=== PATIENT | female | born 1945 | race African-American/Black ===

== ENCOUNTER 2017-10-18 16:45 | Emergency (ER) | payer MEDICARE, MEDICAID ==
[~2017-10-18] VITALS: Ht 157.5 cm; Wt 73.5 kg
[~2017-10-18 16:45] MED LIST: HYDROCHLOROTHIA25 MG ORAL; NEURONTIN100 MG ORAL; NORCO 5-325 TA1 EACH ORAL; SYNTHROID25 MCG ORAL; VALIUM5 MG ORAL
[2017-10-18] MEDS ORDERED: Norco 5mg/325mg tab ORAL ONE (17:15)
[2017-10-18 17:36] VITALS: BP 129/75
--- NOTE | 2017-10-18 17:43 | Emergency Room Report ---
History of Present Illness General Chief Complaint: Pain Source: Patient, Medical Record Present Illness HPI 72-year-old female presents to the emergency department complaining of 7 out of 10 in severity localized pain to the anterior left knee 2 days. Patient denies trauma or fall. Patient reports history of arthritis in the knee and previously was receiving steroid injections. Patient states she has not had an injection in many months. Patient states that she had right knee replacement several years ago and was told that she needs to have the same procedure performed on the left knee however she has been putting off. Patient denies erythema, increased temperature palpation, open wounds near the affected area. Denies numbness tingling or loss of sensation or gross motor movements of the extremities, incontinence of bowel or bladder. Denies CP, Palpitations, LOC, AMS , dizziness, Changes in Vision, weakness or a sudden severe headache. Allergies: Coded Allergies: CODEINE (Verified Allergy, Unknown, 02/13/13) Patient History Past Medical History: see triage record, other - lumpectomy Past Surgical History: none Pertinent Family History: none Now: No Reviewed Nursing Documentation: PMH: Agreed; PSxH: Agreed Nursing Documentation-PMH Past Medical History: No History, Except For Hx Hypertension: Yes Hx Pacemaker: No Hx COPD: Yes Hx Cancer: Yes - BREAST CA WITH RIGHT LUMPECTOMY Hx Neurological Problems: Yes - Herinated Discs Review of Systems All Other Systems: negative except mentioned in HPI Physical Exam Vital Signs Date Time Temp Pulse Resp B/P (MAP) Pulse Ox O2 Delivery O2 Flow Rate FiO2 10/18/17 16:53 98.0 70 18 129/75 98 Room Air 98.1 Sp02 EP Interpretation: reviewed, normal General Appearance: no apparent distress, alert, GCS 15, non-toxic Head: normocephalic, atraumatic Eyes: bilateral eye normal inspection, bilateral eye PERRL ENT: hearing grossly normal, normal voice Neck: full range of motion Respiratory: chest non-tender, lungs clear, normal breath sounds, speaking full sentences Cardiovascular #1: regular rate, rhythm, no edema, normal capillary refill Cardiovascular #2: 2+ dorsalis pedis (R), 2+ dorsalis pedis (L) Musculoskeletal: back normal, normal range of motion, swelling - LEFt knee, other - Some laxity noted with Valgus stressing, , tender - anterior left knee Neurologic: alert, oriented x3, responsive, motor strength/tone normal, sensory intact, speech normal, grossly normal Psychiatric: judgement/insight normal Skin: normal color, no rash, warm/dry, well hydrated Medical Decision Making ZONIA Attraymondation Dr. Thacker is my supervising Physician whom patient management has been discussed with. Diagnostic Impression: Primary Impression: Knee effusion, left Additional Impression: Knee pain, left Qualified Codes: M25.562 - Pain in left knee ER Course 72-year-old female presents to the emergency department complaining of 7 out of 10 in severity localized pain to the anterior left knee 2 days. Patient denies trauma or fall. Patient reports history of arthritis in the knee and previously was receiving steroid injections. Patient states she has not had an injection in many months. Patient states that she had right knee replacement several years ago and was told that she needs to have the same procedure performed on the left knee however she has been putting off. Patient denies erythema, increased temperature palpation, open wounds near the affected area. Denies numbness tingling or loss of sensation or gross motor movements of the extremities, incontinence of bowel or bladder. Denies CP, Palpitations, LOC, AMS , dizziness, Changes in Vision, weakness or a sudden severe headache. Ddx considered but are not limited to Fracture, dislocation, contusion, Sprain/ Strain/Spasm, septic Joint, Arthritis, gout just to name a few. Vital signs: are WNL, pt. is afebrile H&PE are most consistent with musculoskeletal injury will perform imaging to r/ o fractures/dislocations. ORDERS: - X-ray Left knee - Significant arthritic changes, loss of joint space/ degeneration. Negative for fx, Dislocation, or significant soft tissue injury, per preliminary read in ED, and signed by ZONIA Bolanos, my supervising physician has reviewed, and agrees with my interpretation. ED INTERVENTIONS: -Ackworth PO --Knee Immobilizer splint applied to the Left Knee by electrical controls technician. Pt. remains neurovascularly intact. --Patient is provided with a cane. DISCHARGE: At this time pt. is stable for d/c to home. Will provide printed patient care instructions, and any necessary prescriptions. Care plan and follow up instructions have been discussed with the patient prior to discharge. Other X-Ray Diagnostic Results Other X-Ray Diagnostic Results : X-Ray ordered: Left Knee # of Views/Limited Vs Complete: 3 View Indication: Pain EP Interpretation: Yes ZONIA Xray: Interpretation reviewed, by supervising MD, and agrees with findings. Interpretation: no dislocation, no fractures, other - Significant arthritic changes, loss of joint space/degeneration. Impression: No acute disease Electronically Signed by: Yuli Bolanos PA-C Last Vital Signs Date Time Temp Pulse Resp B/P (MAP) Pulse Ox O2 Delivery O2 Flow Rate FiO2 10/18/17 17:15 98.0 10/18/17 16:53 70 18 129/75 98 Room Air Disposition: HOME, SELF-CARE Condition: Stable Scripts Naproxen* (NAPROXEN*) 500 Mg Tablet 500 MG ORAL TWICE A DAY, #20 TAB Prov: Yuli Bolanos 10/18/17 Referrals: NON PHYSICIAN (PCP) Patient Instructions: Arthritis, [id number], Knee Effusion, Knee Immobilizer , [id number] Additional Instructions: Take medications as directed. Follow up with a Primary Care Provider in 3-5 days, even if your symptoms have resolved. --Please review list of primary care clinics, if you do not already have a primary care provider Return sooner to ED if new symptoms occur, or current symptoms become worse. Do not drink alcohol, drive, or operate heavy machinery while taking Ackworth as this may cause drowsiness. - Please note that this Emergency Department Report was dictated using [employer] plant operator technology software, occasionally this can lead to erroneous entry secondary to interpretation by the dictation equipment. Yuli Bolanos Oct 18, 2017 17:43
--- NOTE | 2017-10-18 18:14 | Diagnostic Imaging Report ---
EXAM: XR Left Knee, 3 views CLINICAL HISTORY: PAIN TECHNIQUE: Three views of the left knee. COMPARISON: No relevant prior studies available. FINDINGS: Bones/joints: Osteoarthrosis, most pronounced in the lateral compartment. Osteopenia. No acute fracture. No dislocation. Soft tissues: Joint fluid distends the suprapatellar pouch. IMPRESSION: Osteoarthrosis. Joint effusion.
[2017-10-18] MEDS ORDERED: NAPROXEN500 M2 ORAL (18:17)
[2017-10-18 18:23] VITALS: BP 122/84
== END 2017-10-18 18:25 | disposition home or self-care (01) ==
LOC: EMR 17:25
DX: M25.462 Effusion, left knee (principal); I10 Essential (primary) hypertension; J44.9 Chronic obstructive pulmonary disease, unspecified; Z85.3 Personal history of malignant neoplasm of breast
CPT/HCPCS: 99283

== ENCOUNTER 2018-10-26 20:20 | Emergency (ER) | payer MEDICARE, MEDICAID ==
[~2018-10-26] VITALS: Ht 157.5 cm; Wt 64.9 kg
[~2018-10-26 20:20] MED LIST changes: +CIPROFLOXACIN500 M2 ORAL; +IBUPROFEN600 MG ORAL; +NAPROXEN500 M2 ORAL; +TRAMADOL HCL50 MG ORAL
[2018-10-26 20:34] VITALS: BP 120/64
--- NOTE | 2018-10-26 20:34 | NUR ---
ED Nurse Note: pt walked in c/o right upper rib area pain, worsen when turning since last wed. ao4. nad. vss. family at bedside.
--- NOTE | 2018-10-26 21:13 | Emergency Room Report ---
History of Present Illness General Chief Complaint: Pain Source: Patient, Medical Record Present Illness HPI Disclaimer: Please note that this report is being documented using DRAGON technology. This can lead to erroneous entry secondary to incorrect interpretation by the dictating instrument. HPI: 73-year-old female with a history of breast cancer status post radiation lumpectomy, thyroidectomy on Synthroid, COPD presents for evaluation of right chest wall pain. Symptoms began approximately 5 days ago. The patient notes pain just below the scapula on the right side that is present with bending and twisting motions or while using the right upper extremity. She denies any fall or injury. No change in cough, denies sputum production, recent fevers or URI symptoms. She denies chest pain, abdominal pain, nausea, vomiting, diarrhea, dysuria or skin rash. The pain is manageable at home and is not been using any medication until today when she took a half a [place] tablet just prior to arrival stating that the pain was getting bad. She has been trying to stretch out the area but no significant improvement. She denies any paresthesias, weakness, swelling of the extremities. PMH: Breast cancer, hypothyroidism, COPD PSH: Thyroidectomy, lumpectomy Allergies: Codeine Social Hx: Former smoker. Denies alcohol or drug use Allergies: Coded Allergies: CODEINE (Verified Allergy, Unknown, 02/13/13) Patient History : 4 Para: 4 Nursing Documentation-PMH Hx Hypertension: Yes Hx Pacemaker: No Hx COPD: Yes Hx Cancer: Yes - BREAST CA WITH RIGHT LUMPECTOMY Hx Neurological Problems: Yes - Herinated Discs Review of Systems All Other Systems: negative except mentioned in HPI Physical Exam Vital Signs Date Time Temp Pulse Resp B/P (MAP) Pulse Ox O2 Delivery O2 Flow Rate FiO2 10/26/18 20:23 99.1 85 18 120/64 (82) 93 Room Air General: Awake and alert, no acute distress HEENT: NC/AT. EOMI. Neck: Supple, trachea midline Chest Wall: There is tenderness palpation around the fifth rib wrapping around through the back without obvious deformity. There is no crepitus. Cardiovascular: RRR. S1 and S2 normal. No murmur appreciated Resp: Normal work of breathing. Breath sounds are equal. No cough, wheezing or crackles appreciated Skin: Intact. No abrasions, laceration or rash over the exposed skin MSK: Normal tone and bulk. Moving all extremities. No obvious deformity. Moving the extremities without difficulty. Strength is 5/5 the shoulders, elbows, wrist bilaterally. No limitation to range of motion of the upper extremities. Neuro: Awake and alert. Mentating appropriately. Sensation is intact of the dermatomes of the upper extremities bilaterally. Back/Spine: No midline tenderness in the cervical, thoracic or lumbosacral spine. No significant tenderness over the paraspinal region in the cervical, thoracic or lumbosacral spine. No tenderness over the trapezius. Medical Decision Making ER Course Is a 73-year-old female presented for evaluation of back and chest wall pain for 5 days. Differential includes but is not limited to musculoskeletal pain, muscle spasm, pneumonia, bronchitis, pneumothorax, occult fracture. Will obtain a two-view chest x-ray to rule out any thoracic pathology, bony or infectious, and treat the patient with intramuscular Toradol. She has a PMD which she follows up closely. If chest x-ray unremarkable, she may be discharged home with outpatient follow-up. Chest X-Ray Diagnostic Results Chest X-Ray Diagnostic Results : # of Views/Limited/Complete: 2 View Indication: Chest Pain EP Interpretation: Yes Interpretation: no consolidation, no effusion, no pneumothorax, no acute cardiopulmonary disease Impression: No acute disease Electronically Signed by: Electronically signed by Dr. Mehul Chavez Reevaluation Time: 22:00 Last Vital Signs Date Time Temp Pulse Resp B/P (MAP) Pulse Ox O2 Delivery O2 Flow Rate FiO2 10/26/18 20:34 99.1 81 18 120/64 93 Room Air Status: improved Reevaluation Impression No evidence of fracture, pneumothorax, pneumonia or other acute pathology seen on two-view chest x-ray. The patient's pain is now completely resolved after receiving intramuscular Toradol. Is likely musculoskeletal though she should follow closely with her PMD. I discussed imaging results, treatment plan with Tylenol Motrin, warm soaks, heating pad and continued exercises with the patient and her daughter who is present at bedside. We also discussed reasons to return to the emergency department. They agree with this treatment plan will be discharged home. Disposition: HOME, SELF-CARE Condition: Improved Referrals: Elieser Solorzano MD (PCP) Mehul Chavez MD Oct 26, 2018 21:13
[2018-10-26] MEDS ORDERED: Ketorolac 30mg Inj IM ONE (21:15)
--- NOTE | 2018-10-26 21:21 | NUR ---
ED Nurse Note: pt down to imaging.
[2018-10-26 22:00] VITALS: BP 120/64
--- NOTE | 2018-10-26 22:03 | NUR ---
ER DISCHARGE NOTE: Patient is cleared to be discharged per ERMD, pt is aox4, on room air, with stable vital signs. accompanied by family member. pt was given dc and prescription instructions, pt was able to verbalize understanding, pt id band removed. pt is able to ambulate with steady gait. pt took all belongings.
--- NOTE | 2018-10-27 09:47 | Diagnostic Imaging Report ---
Indication: Cough Technique: 2 views of the chest Comparison: 08/19/2007 Findings: Lungs and pleural spaces are clear. The heart size is normal. The aorta is ectatic. There are right axillary surgical clips. Linear scarring is seen in the posterior left lower lobe. There is no significant interim change Impression: No acute process
== END 2018-10-26 22:00 | disposition home or self-care (01) ==
LOC: EMR 21:04
DX: R07.89 Other chest pain (principal); I10 Essential (primary) hypertension; J44.9 Chronic obstructive pulmonary disease, unspecified; Z85.3 Personal history of malignant neoplasm of breast
CPT/HCPCS: 71046; 96372; 99283; J1885